=== PATIENT | male | born 1940 | race American Indian/Alaskan Native ===

== ENCOUNTER 2017-12-23 13:21 | Outpatient (CLI) | payer MEDICARE ==
--- NOTE | 2017-12-24 07:39 | XRay Report ---
FINAL REPORT PROCEDURE: XR KNEE 4+V RT TECHNIQUE: RIGHT knee radiographs, AP, lateral and sunrise views. CPT 03821 HISTORY: KNEE PAIN COMPARISON: No prior studies are available for comparison. FINDINGS: Knee replacement hardware is intact. There is no fracture or malalignment. Bony structures are intact. There is generalized soft tissue swelling. There is no joint effusion. IMPRESSION: Hardware is intact. There is no evidence of fracture. There is generalized soft tissue swelling..
== END 2017-12-23 13:22 | disposition home or self-care (01) ==
LOC: EDBD 13:21 → SPVIMAG 13:21
PROVIDERS: ATTEND Orthopaedic Surgery Sports Medicine
DX: M25.561 Pain in right knee (principal); M79.89 Other specified soft tissue disorders; Z96.651 Presence of right artificial knee joint

== ENCOUNTER 2018-03-10 15:28 | Outpatient (CLI) | payer MEDICARE ==
--- NOTE | 2018-03-10 23:14 | XRay Report ---
FINAL REPORT PROCEDURE: XR HAND 3+V LT TECHNIQUE: LEFT hand radiographs, AP, lateral, and oblique views. CPT 21853-[facility] HISTORY: NODULE ON LT HAND COMPARISON: No prior studies are available for comparison. FINDINGS: Fracture (s) and/or Dislocation(s): There is no fracture or malalignment.. Alignment: Normal . 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 There is widening of the scaffold lunate space indicating scaffold lunate ligament tear. This could be chronic.. Soft tissues: Normal . Bone mineralization: Normal . Foreign bodies: None . IMPRESSION: There is no fracture or malalignment.. 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 There is widening of the scaffold lunate space indicating scaffold lunate ligament tear. This could be chronic.. .
== END 2018-03-10 15:29 | disposition home or self-care (01) ==
LOC: SPVIMAG 15:28
DX: S63.8X2A Sprain of other part of left wrist and hand, initial encounter (principal); M19.042 Primary osteoarthritis, left hand; X58.XXXA Exposure to other specified factors, initial encounter; Y93.89 Activity, other specified; Y92.89 Other specified places as the place of occurrence of the external cause; Y99.8 Other external cause status